=== PATIENT | male | born 1955 | race Caucasian/White ===

== ENCOUNTER 2016-08-26 23:26 | Emergency (ER) | payer OTHER ==
[~2016-08-26] VITALS: Ht 177.8 cm; Wt 122.5 kg
[~2016-08-26 23:26] MED LIST: AMITRIPTYLINE100 M2 PO; ATORVASTATIN CA40 M1 PO; CLOPIDOGREL75 M1 PO; GLIPIZIDE10 M2 PO; HYDROCHLOROTHIA25 M1 PO; JANUMET 50-1,01 EACH PO; KEFLEX500 M1 PO; LANTUS SOL100 UNIT/1 SC; LEVOTHYROXINE25 MCG PO; LISINOPRIL40 M1 PO; OMEPRAZOLE40 M1 PO; OXYCODONE HCL30 M1 PO; OXYCONTIN40 M1 PO
--- NOTE | 2016-08-27 01:00 | ED GENERAL ADULT ---
History of Present Illness General Chief Complaint: General Adult Stated Complaint: "HIGH BP" PER PT Source: patient, family, old records Exam Limitations: no limitations Vital Signs & Intake/Output Vital Signs & Intake/Output Vital Signs Date Time Temp Pulse Resp B/P Pulse O2 O2 Flow FiO2 Ox Delivery Rate 08/27 0115 98 Room Air 08/27 0104 153/89 03/ 2333 95.9 76 20 197/70 96 Room Air ED Intake and Output 08/27 0000 08/26 1200 Intake Total Output Total Balance Patient 270 lb Weight Allergies Coded Allergies: NO KNOWN ALLERGIES (07/06/15) Reconcile Medications Amitriptyline HCl 100 MG TABLET 1 TAB PO QPM UNKNOWN (Reported) Atorvastatin Calcium 40 MG TABLET 1 TAB PO DAILY CHOLESTEROL (Reported) Cephalexin (Keflex) 500 MG CAPSULE 1 CAP PO TID PPX Clopidogrel Bisulfate (Clopidogrel) 75 MG TABLET 1 TAB PO DAILY BLOOD THINNER (Reported) Glipizide 10 MG TABLET 1 TAB PO DAILY DIABETES (Reported) Hydrochlorothiazide 25 MG TABLET 1 TAB PO DAILY WATER PILL (Reported) Insulin Glargine,Hum.rec.anlog (Lantus Solostar) 100 UNIT/1 ML INSULN.PEN 7 UNIT SC BID DIABETES (Reported) Levothyroxine Sodium 25 MCG TABLET 1 TAB PO DAILY AC THYROID (Reported) Lisinopril 40 MG TABLET 1 TAB PO DAILY HEART (Reported) Omeprazole 40 MG CAPSULE.DR 1 CAP PO DAILY PRN GI (Reported) Oxycodone HCl 30 MG TABLET 1 TAB PO PAIN (Reported) Oxycodone HCl (Oxycontin) 40 MG TAB.ER.12H 1 TAB PO TID PAIN (Reported) Sitagliptin Phos/Metformin HCl (Janumet 50-1,000 MG Tablet) 1 EACH TABLET 1 TAB PO BID DIABETES (Reported) Triage Note: PT TO ED C/O HIGH BP AT HOME. TOOK 40 MG LISINOPRIL AT 2100 "I WANTED TO SEE HOW LONG IT TAKES TO WORK" TOOK BP AT 2230 WAS 162/97. TOOK AGAIN 30 MINS LATER AND IT WAS 191/106. DENIES HEADACHE. BP IN TRIAGE 197/70. PT TAKING HIS BP WITH HIS MACHINE AGAIN IN TRIAGE. FINGERSTICK AT HOME 185 Triage Nurses Notes Reviewed? yes HPI: Patient states that for the past few weeks he's been getting sweaty intermittently. Patient was concerned that it was his blood pressures so he took his Blood pressure this evening and it was elevated. Patient took his blood pressure medication however his pressure continued to go up. Patient denies any headache or blurry vision. Patient came in to get evaluated. Patient states that intermittently for the past few weeks when he has been sleeping usual quinapril for blood but then is relieved when he gets up and watch TV. Patient states that it does not happen every night. Patient denies any chest pain or palpitations. Patient denies any dyspnea on exertion. Patient states that he chronically sleeps on 2 pillows and that has not changed. Patient states that also over the past 2 weeks. Getting intermittent sharp stabbing pain in his shoulder while he was sleeping. The pain is either in the right shoulder or the left shoulder but never both at the same time. The pain is relieved when he takes oxycodone. Patient also states that occasionally he gets cramping in both calves. The pain is independent with walking. The pain lasts a few hours when he gets up and then it goes away. There is no radiation of the pain. There are no aggravating or mitigating factors. When he has the pain he rates it as a 4 out of 10. Past History Travel History Traveled to [place] past 21 day No Medical History Any Pertinent Medical History? see below for history Cardiovascular: hypertension, hyperlipidemia Musculoskeletal: chronic back pain Endocrine: diabetes Surgical History Surgical History: laminectomy Psychosocial History What is your primary language Bulgarian Tobacco Use: Never used ETOH Use: occasional use Illicit Drug Use: denies illicit drug use Family History Hx Contributory? No Review of Systems Review of Systems Constitutional: Reports: see HPI. EENTM: Reports: no symptoms. Respiratory: Reports: see HPI, orthopnea (INTERMITTENT). Cardiovascular: Reports: no symptoms. GI: Reports: no symptoms. Genitourinary: Reports: no symptoms. Musculoskeletal: Reports: see HPI, joint pain, muscle pain. Skin: Reports: no symptoms. Neurological/Psychological: Reports: no symptoms. Hematologic/Endocrine: Reports: no symptoms. Immunologic/Allergic: Reports: no symptoms. All Other Systems: Reviewed and Negative Physical Exam Physical Exam General Appearance: well developed/nourished, alert, awake Head: atraumatic, normal appearance Eyes: Bilateral: PERRL, EOMI. Ears, Nose, Throat: normal pharynx, normal ENT inspection, hearing grossly normal Neck: normal inspection, supple, full range of motion Respiratory: normal breath sounds, chest non-tender, no respiratory distress, lungs clear Cardiovascular: regular rate/rhythm, normal peripheral pulses Gastrointestinal: normal bowel sounds, soft, non-tender, no organomegaly Back: normal inspection, normal range of motion Extremities: pedal edema Neurologic/Psych: no motor/sensory deficits, awake, alert, oriented x 3, normal gait, normal mood/affect Skin: intact, normal color, warm/dry Lymphatic: no anterior cervical luba Core Measures ACS in differential dx? Yes CVA/TIA Diagnosis: No Severe Sepsis Present: No Septic Shock Present: No Progress Differential Diagnoses I considered the following diagnoses in my evaluation of the patient: [ Hypertension: Excellent abnormality, CHF] Plan of Care: Patient states that his blood pressure is better and he wants to go home. Patient promises to return for workup patient is to continue the symptoms. Patient verbally understands the risks of leaving prior to workup being initiated. Patient is alert and oriented 3 and is competent to make decisions. Initial ED EKG: none Departure Departure Disposition: HOME OR SELF CARE Condition: Stable Clinical Impression Primary Impression: Hypertension Referrals: SHADIA LUNA (PCP/Family) Additional Instructions: RETURN FOR FURTHER WORKUP OR FOR ANY CONCERNS Departure Forms: Customer Survey General Discharge Information Critical Care Note Critical Care Note Critical Care Time: non-applicable
[2016-08-27 01:04] VITALS: BP 153/89
== END 2016-08-27 01:15 ==
LOC: ERH 23:26
DX: I10 Essential (primary) hypertension (principal)
CPT/HCPCS: 99282

== ENCOUNTER 2016-09-07 21:27 | Emergency (ER) | payer OTHER ==
[2016-09-07 21:38] VITALS: BP 161/71
[2016-09-07] MEDS ORDERED: NAPROSYN500 M1 PO (22:23)
[2016-09-07] MEDS ORDERED: AZITHROMYCIN250 M1 PO (22:23)
--- NOTE | 2016-09-07 22:24 | ED THROAT/DENTAL COMPLAINT ---
History of Present Illness General Chief Complaint: Sore Throat, Dental Pain Stated Complaint: TOOTH PAIN Source: patient Exam Limitations: no limitations Vital Signs & Intake/Output Vital Signs & Intake/Output Vital Signs Date Time Temp Pulse Resp B/P Pulse O2 O2 Flow FiO2 Ox Delivery Rate 09/078 98.5 80 20 161/71 99 Allergies Coded Allergies: NO KNOWN ALLERGIES (07/06/15) Triage Note: PER PT I HAVE NO MONEY MY TOOTH IS KILLING ME SO I'M HERE Triage Nurses Notes Reviewed? yes HPI: This patient is a 61-year-old male who presented to the emergency department today for evaluation of lower dental pain. The patient reported that the pain started today feels like his gums are getting infected. The pain except a 9 out of 10, is throbbing, and nonradiating. No palliative factors. 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 He reported that he is currently getting set up with a dentist in [place] who does pro nancy dental work. The patient denied any ear pain or headaches. No visual changes, chest pain, or difficulty breathing. (LESIA WADE,SHARIF) Reconcile Medications Amitriptyline HCl 100 MG TABLET 1 TAB PO QPM UNKNOWN (Reported) Atorvastatin Calcium 40 MG TABLET 1 TAB PO DAILY CHOLESTEROL (Reported) Azithromycin 250 MG TABLET 1 DP PO AD TOOTH INFECTION 2 the first day followed by 1 for days 2-5 Cephalexin (Keflex) 500 MG CAPSULE 1 CAP PO TID PPX Clopidogrel Bisulfate (Clopidogrel) 75 MG TABLET 1 TAB PO DAILY BLOOD THINNER (Reported) Glipizide 10 MG TABLET 1 TAB PO DAILY DIABETES (Reported) Hydrochlorothiazide 25 MG TABLET 1 TAB PO DAILY WATER PILL (Reported) Insulin Glargine,Hum.rec.anlog (Lantus Solostar) 100 UNIT/1 ML INSULN.PEN 7 UNIT SC BID DIABETES (Reported) Levothyroxine Sodium 25 MCG TABLET 1 TAB PO DAILY AC THYROID (Reported) Lisinopril 40 MG TABLET 1 TAB PO DAILY HEART (Reported) Naproxen (Naprosyn) 500 MG TABLET 1 TAB PO BID PRN PAIN Omeprazole 40 MG CAPSULE.DR 1 CAP PO DAILY PRN GI (Reported) Oxycodone HCl 30 MG TABLET 1 TAB PO PAIN (Reported) Oxycodone HCl (Oxycontin) 40 MG TAB.ER.12H 1 TAB PO TID PAIN (Reported) Sitagliptin Phos/Metformin HCl (Janumet 50-1,000 MG Tablet) 1 EACH TABLET 1 TAB PO BID DIABETES (Reported) (ECTOR LAWSON,SHERLEY) Past History Travel History Traveled to [place] past 21 day No Medical History Any Pertinent Medical History? see below for history Neurological: NONE EENT: NONE Cardiovascular: hypertension, hyperlipidemia Respiratory: NONE Gastrointestinal: NONE Hepatic: NONE Renal: NONE Musculoskeletal: chronic back pain Psychiatric: NONE Endocrine: diabetes Surgical History Surgical History: laminectomy Psychosocial History What is your primary language Malawian Tobacco Use: Never used Family History Hx Contributory? No (SHARIF GRAF PA-C) Review of Systems Review of Systems Constitutional: Reports: no symptoms. EENTM: Reports: see HPI. Respiratory: Reports: no symptoms. Cardiovascular: Reports: no symptoms. GI: Reports: no symptoms. Genitourinary: Reports: no symptoms. Musculoskeletal: Reports: no symptoms. Skin: Reports: no symptoms. Neurological/Psychological: Reports: no symptoms. All Other Systems: Reviewed and Negative (SHARIF GRAF PA-C) Physical Exam Physical Exam Mouth/Throat: pharynx normal, TENDERNESS TO PALPATION OVER THE LOWER DENTITION. pOOR DENTITION. cARIOUS. mANY MISSING TEETH. nO OROPHARYNGEAL LESIONS. nO ABSCESS FORMATION. mILD AMOUNT OF GINGIVAL ERYTHEMA AROUND THE LOWER DENTITION Comments: Well-developed well-nourished person in no acute distress HEENT: Head normocephalic, moist mucous membranes Pupils equally round and reactive to light. Nose is atraumatic. Neck: Supple, no lymphadenopathy Back: Normal gait Respiratory: No respiratory distress. Speaking in full sentences Extremity: Normal equal pulses Neuro: Alert oriented x3, cranial nerves II through XII grossly intact. Skin: No appreciable rash on exposed skin, skin is warm and dry. Psych: Mood and affect is normal Core Measures ACS in differential dx? No Severe Sepsis Present: No Septic Shock Present: No (SHARIF GRAF PA-C) Progress Differential Diagnosis: aspirated tooth, carious tooth, epiglottitis, Ludwigs angina, meningitis, odontogenic abscess, graham-tonsillar abscess, pharyngeal for. body, stomatitis/gingivitis, strep pharyngitis, tooth fracture Plan of Care: This patient is a 61-year-old male who presented to the emergency department today for evaluation of dental pain. Possible developing dental infection given carious teeth and tooth fracture at the site of pain. This patient will be given outpatient symptomatic management and he will be following up with his dentist as discussed. (SHARIF GRAF PA-C) Departure Departure Disposition: HOME OR SELF CARE Condition: Stable Clinical Impression Primary Impression: Tooth fracture Qualifiers: Encounter type: initial encounter Fracture type: closed Qualified Code: S02.5XXA - Fracture of tooth (traumatic), initial encounter for closed fracture Referrals: SHADIA LUNA (PCP/Family) Additional Instructions: Take medication for pain as prescribed. Take antibiotic as prescribed. Follow- up with your dentist. Departure Forms: Customer Survey General Discharge Information Prescriptions: Current Visit Scripts Naproxen (Naprosyn) 1 TAB PO BID PRN PAIN #15 TAB Azithromycin 1 DP PO AD #6 TAB 2 the first day followed by 1 for days 2-5 (SHARIF GRAF PA-C) PA/MC KAY STITCHER Co-Sign Statement Statement: ED Attending supervision documentation- x I saw and evaluated the patient. I have also reviewed all the pertinent lab results and diagnostic results. I agree with the findings and the plan of care as documented in the PA's/MC KAY STITCHER's documentation. [] I have reviewed the ED Record and agree with the PA's/MC KAY STITCHER's documentation. [] Additions or exceptions (if any) to the PAs/MC KAY STITCHER's note and plan are summarized below: [] (ECTOR LAWSON,SHERLEY)
== END 2016-09-07 22:31 ==
LOC: ERH 21:27
DX: S02.5XXA Fracture of tooth (traumatic), initial encounter for closed fracture (principal); X58.XXXA Exposure to other specified factors, initial encounter; Y93.9 Activity, unspecified; Y92.9 Unspecified place or not applicable

== ENCOUNTER 2016-10-01 23:29 | Emergency (ER) | payer OTHER ==
[~2016-10-01] VITALS: Ht 177.8 cm; Wt 118.8 kg
[~2016-10-01 23:29] MED LIST changes: +AZITHROMYCIN250 M1 PO; +NAPROSYN500 M1 PO
--- NOTE | 2016-10-02 00:09 | ED GENERAL ADULT ---
History of Present Illness General Chief Complaint: General Adult Stated Complaint: " BP 175/87 HX OF HIGH BP, SWEATING" Source: patient Exam Limitations: no limitations Vital Signs & Intake/Output Vital Signs & Intake/Output Vital Signs Date Time Temp Pulse Resp B/P Pulse O2 O2 Flow FiO2 Ox Delivery Rate 10/02 0156 98.3 62 18 132/61 98 10/02 0002 97.1 70 18 156/79 98 Allergies Coded Allergies: NO KNOWN ALLERGIES (07/06/15) Reconcile Medications Amitriptyline HCl 100 MG TABLET 1 TAB PO QPM UNKNOWN (Reported) Atorvastatin Calcium 40 MG TABLET 1 TAB PO DAILY CHOLESTEROL (Reported) Azithromycin 250 MG TABLET 1 DP PO AD TOOTH INFECTION 2 the first day followed by 1 for days 2-5 Cephalexin (Keflex) 500 MG CAPSULE 1 CAP PO TID PPX Clopidogrel Bisulfate (Clopidogrel) 75 MG TABLET 1 TAB PO DAILY BLOOD THINNER (Reported) Glipizide 10 MG TABLET 1 TAB PO DAILY DIABETES (Reported) Hydrochlorothiazide 25 MG TABLET 1 TAB PO DAILY WATER PILL (Reported) Insulin Glargine,Hum.rec.anlog (Lantus Solostar) 100 UNIT/1 ML INSULN.PEN 7 UNIT SC BID DIABETES (Reported) Levothyroxine Sodium 25 MCG TABLET 1 TAB PO DAILY AC THYROID (Reported) Lisinopril 40 MG TABLET 1 TAB PO DAILY HEART (Reported) Naproxen (Naprosyn) 500 MG TABLET 1 TAB PO BID PRN PAIN Omeprazole 40 MG CAPSULE.DR 1 CAP PO DAILY PRN GI (Reported) Oxycodone HCl 30 MG TABLET 1 TAB PO PAIN (Reported) Oxycodone HCl (Oxycontin) 40 MG TAB.ER.12H 1 TAB PO TID PAIN (Reported) Sitagliptin Phos/Metformin HCl (Janumet 50-1,000 MG Tablet) 1 EACH TABLET 1 TAB PO BID DIABETES (Reported) Triage Note: TRIAGE: PATIENT TO ER FROM HOME REPORTS SWEATING INTERMITTENTLY X "FEW MONTHS", INCREASING. PATIENT ALSO REPORTING EXHESTION EXHAUSTION, DENIES SOB/ CP. PATIENT ALSO REPORTS STOPPED PLAVIX 1 WEK AGO PER MD DIRECTION D/T CARDIAC STENTS PLACED. PATIENT DENIE ANY OTHER COMPLAINTS OTHER THAN INTERMITTENT SWEATING. SEEN BY MD TYSON IN [place] DURING EKG. Triage Nurses Notes Reviewed? yes Onset: Gradual Duration: day(s): Timing: recent history Injury Environment: home Severity: mild Modifying Factors: Improves With: rest. Associated Symptoms: diaphoresis HPI: 61 yo gentleman Presents with elevated blood pressure. He states that his blood pressure at home has a systolic in the 180s. He notes no dietary indiscretion. He's been taking his medications as prescribed. He states that he took his blood pressure upon arrival the systolic blood pressure was 154. He notes no chest pain shortness of breath or syncopal symptoms but he did note mild diaphoresis. He has no orthopnea no swelling in his lower extremities no chest pain. He is otherwise well. Past History Travel History Traveled to [place] past 21 day No Medical History Any Pertinent Medical History? 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 No Review of Systems Review of Systems Constitutional: Reports: no symptoms. EENTM: Reports: no symptoms. Respiratory: Reports: no symptoms. Cardiovascular: Reports: no symptoms. GI: Reports: no symptoms. Genitourinary: Reports: no symptoms. Musculoskeletal: Reports: no symptoms. Skin: Reports: no symptoms. Neurological/Psychological: Reports: no symptoms. Hematologic/Endocrine: Reports: no symptoms. Immunologic/Allergic: Reports: no symptoms. All Other Systems: Reviewed and Negative Physical Exam Physical Exam General Appearance: well developed/nourished, anxious - mild Head: atraumatic, normal appearance Eyes: Bilateral: normal appearance. Ears, Nose, Throat: normal pharynx, normal ENT inspection Neck: normal inspection, supple, full range of motion Respiratory: normal breath sounds, chest non-tender, no respiratory distress, quiet respiration, lungs clear Cardiovascular: regular rate/rhythm Gastrointestinal: normal bowel sounds, soft, non-tender, no organomegaly Back: normal inspection, normal range of motion Extremities: normal inspection, normal capillary refill, normal range of motion, no edema Neurologic/Psych: no motor/sensory deficits, awake, alert, oriented x 3 Skin: intact, normal color, warm/dry Core Measures ACS in differential dx? No CVA/TIA Diagnosis: No Severe Sepsis Present: No Septic Shock Present: No Progress Differential Diagnoses I considered the following diagnoses in my evaluation of the patient: elevated bp, mi acs vs other. Plan of Care: Orders Procedure Date/time Status TROPONIN LEVEL 10/02 218 Complete EKG 10/02 218 Active TROPONIN LEVEL 10/01 2334 Complete PARTIAL THROMBOPLASTIN TIME 10/01 2334 Complete PROTHROMBIN TIME 10/01 2334 Complete COMPREHENSIVE METABOLIC PANEL 10/01 2334 Complete CBC WITHOUT DIFFERENTIAL 10/01 2334 Complete B-TYPE NATRIURETIC PEP (BNP) 10/01 2334 Complete EKG 10/01 2334 Active Laboratory Tests 10/02/16 0239: Troponin I < 0.01 10/01/16 2252: Anion Gap 11, Estimated GFR > 60, BUN/Creatinine Ratio 22.5, Glucose 160 H, Calcium 10.3 H, Total Bilirubin 0.7, AST 33, ALT 46, Alkaline Phosphatase 78, Troponin I < 0.01, Rah-K-Dzimfhviukz Pept 36.5, Total Protein 7.2, Albumin 4.4, Globulin 2.8, Albumin/Globulin Ratio 1.6, PT 10.7, INR 1.02, APTT 27, CBC w Diff NO MAN DIFF REQ, RBC 4.72, MCV 85.5, MCH 29.5, RDW 13.4, MPV 7.4, Gran % 85.9 H , Lymphocytes % 7.2 L, Monocytes % 5.6, Eosinophils % 1.3, Basophils % 0 L, Absolute Granulocytes 7.3 H, Absolute Lymphocytes 0.6 L, Absolute Monocytes 0.5, Absolute Eosinophils 0.1, Absolute Basophils 0, PUBS MCHC 34.5 Initial ED EKG: normal axis, normal intervals, normal p-waves, normal QRS complex, normal sinus rhythm Repeat EKG: unchanged Departure Departure Disposition: HOME OR SELF CARE Condition: Stable Clinical Impression Primary Impression: Elevated blood pressure reading Referrals: SHADIA LUNA (PCP/Family) Departure Forms: Customer Survey General Discharge Information Comments 10/02/16, 3:57am... pt resting comfortably, labs benign, trop neg x 2, ekg benign x 2.... pt never had chest pain... he will follow up with dr. burnham. encouraged close follow up. Critical Care Note Critical Care Note Critical Care Time: non-applicable
[2016-10-02 00:10] LABS: PT 10.7 SEC (9.4-12.5); PTT 27 SEC (25-37)
[2016-10-02 00:15] LABS: ABSOLUTE BASOPHIL COUNT 0 /CUMM (0.0-0.2); ABSOLUTE EOSINOPHIL COUNT 0.1 /CUMM (0.0-0.7); ABSOLUTE GRANULOCYTE CT 7.3 /CUMM (1.4-6.5); ABSOLUTE LYMPH COUNT 0.6 /CUMM (1.2-3.4); ABSOLUTE MONOCYTE COUNT 0.5 /CUMM (0.10-0.60); BASOPHIL % 0 % (0.0-2.0); EOSINOPHIL % 1.3 % (0-5); GRANULOCYTE % 85.9 % (42.2-75.2); HEMATOCRIT 40.4 % (42-52); MEAN CORPUSCULAR HGB 29.5 PG (27.0-31.0); MEAN CORPUSCULAR HGB CONC 34.5 G/DL (33.0-37.0); MEAN CORPUSCULAR VOLUME 85.5 FL (80.0-94.0); MEAN PLATELET VOLUME 7.4 FL (7.4-10.4); PLATELET COUNT 198 /CUMM (130-400); RBC DISTRIBUTION WIDTH 13.4 % (11.5-14.5); RED BLOOD CELL CT 4.72 /CUMM (4.70-6.10); WHITE BLOOD CELL COUNT 8.5 /CUMM (4.8-10.8)
--- NOTE | 2016-10-02 00:53 | RADIOLOGY REPORT ---
EXAMINATION: CHEST 1 VIEW CLINICAL INFORMATION: Chest pain. COMPARISON: None. TECHNIQUE: An AP view of the chest is provided. FINDINGS: The cardiac silhouette is not enlarged. The mediastinal and hilar contours are unremarkable. There are neither pleural effusions nor pneumothoraces. There are no consolidations. Cervical spine fusion hardware is identified in place. The osseous structures are otherwise unremarkable. IMPRESSION: No evidence for acute disease.
[2016-10-02 04:15] VITALS: BP 128/69
== END 2016-10-02 04:47 ==
LOC: ERH 23:29
PROVIDERS: Pediatrics
DX: I10 Essential (primary) hypertension (principal)
CPT/HCPCS: 93005; 93010

== ENCOUNTER 2016-10-10 21:11 | Emergency (ER) | payer OTHER ==
[~2016-10-10] VITALS: Ht 177.8 cm; Wt 118.8 kg
[2016-10-10 22:35] LABS: ABSOLUTE BASOPHIL COUNT 0 /CUMM (0.0-0.2); ABSOLUTE EOSINOPHIL COUNT 0.2 /CUMM (0.0-0.7); ABSOLUTE GRANULOCYTE CT 5.4 /CUMM (1.4-6.5); ABSOLUTE LYMPH COUNT 0.9 /CUMM (1.2-3.4); ABSOLUTE MONOCYTE COUNT 0.5 /CUMM (0.10-0.60); BASOPHIL % 0.2 % (0.0-2.0); EOSINOPHIL % 2.4 % (0-5); GRANULOCYTE % 78.1 % (42.2-75.2); HEMATOCRIT 41.5 % (42-52); MEAN CORPUSCULAR HGB 29.3 PG (27.0-31.0); MEAN CORPUSCULAR HGB CONC 33.6 G/DL (33.0-37.0); MEAN CORPUSCULAR VOLUME 87.4 FL (80.0-94.0); MEAN PLATELET VOLUME 7.4 FL (7.4-10.4); PLATELET COUNT 183 /CUMM (130-400); RBC DISTRIBUTION WIDTH 13.1 % (11.5-14.5); RED BLOOD CELL CT 4.74 /CUMM (4.70-6.10); WHITE BLOOD CELL COUNT 6.9 /CUMM (4.8-10.8)
[2016-10-11 00:19] VITALS: BP 135/89
--- NOTE | 2016-10-11 00:42 | ED SKIN/ALLERGY COMPLAINT ---
History of Present Illness General Chief Complaint: General Adult Stated Complaint: HERE LAST WEEK FOR SAME, "SWEATING SPELLS" Source: patient, old records Exam Limitations: no limitations Vital Signs & Intake/Output Vital Signs & Intake/Output Vital Signs Date Time Temp Pulse Resp B/P Pulse O2 O2 Flow FiO2 Ox Delivery Rate 10/11 0019 97.7 76 18 135/89 96 Room Air 10/10 2129 160/90 10/10 2125 76 174/86 10/10 2125 97.3 76 18 161/91 98 Room Air ED Intake and Output 10/11 0000 10/10 1200 Intake Total 0 Output Total Balance 0 Intake, Oral 0 Patient 262 lb Weight Allergies Coded Allergies: NO KNOWN ALLERGIES (07/06/15) Reconcile Medications Alprazolam 0.25 MG TABLET 1 TAB PO DAILY NEEDED ?ANXIETY (Reported) Amitriptyline HCl 100 MG TABLET 1 TAB PO QPM UNKNOWN (Reported) Atorvastatin Calcium 40 MG TABLET 1 TAB PO DAILY CHOLESTEROL (Reported) Azithromycin 250 MG TABLET 1 DP PO AD TOOTH INFECTION 2 the first day followed by 1 for days 2-5 Clopidogrel Bisulfate (Clopidogrel) 75 MG TABLET 1 TAB PO DAILY BLOOD THINNER (Reported) Glipizide 10 MG TABLET 1 TAB PO DAILY DIABETES (Reported) Hydrochlorothiazide 25 MG TABLET 1 TAB PO DAILY WATER PILL (Reported) Insulin Glargine,Hum.rec.anlog (Lantus Solostar) 100 UNIT/1 ML INSULN.PEN 7 UNIT SC BID DIABETES (Reported) Levothyroxine Sodium 25 MCG TABLET 1 TAB PO DAILY AC THYROID (Reported) Lisinopril 40 MG TABLET 1 TAB PO DAILY HEART (Reported) Naproxen (Naprosyn) 500 MG TABLET 1 TAB PO BID PRN PAIN Omeprazole 40 MG CAPSULE.DR 1 CAP PO DAILY PRN GI (Reported) Oxycodone HCl 30 MG TABLET 1 TAB PO PAIN (Reported) Oxycodone HCl (Oxycontin) 40 MG TAB.ER.12H 1 TAB PO TID PAIN (Reported) Rosuvastatin Calcium (Crestor) 10 MG TABLET 1 TAB PO DAILY HIGH CHOLESTEROL ( Reported) Sitagliptin Phos/Metformin HCl (Janumet 50-1,000 MG Tablet) 1 EACH TABLET 1 TAB PO BID DIABETES (Reported) Zolpidem Tartrate 5 MG TABLET 1 TAB PO QPMP (Reported) Triage Note: RECEIVED 61 YO MALE C/O INTERMITTENT EPISODES OF FACIAL AND NECK REDNESS WITH PROFUSE SWEATING, OCCURED 3X TODAY. PT WAS HERE FOR SAME OVER A WEEKS AGO AND D/C'D. PT ALSO REPORTS B/P DIFFERENT IN BOTH ARMS WELL BLOOD SUGAR. Triage Nurses Notes Reviewed? yes HPI: Patient presents for evaluation of "sweating spells" that began last week. Patient states he was evaluated in the emergency department at [facility] and no cause was determined. He states he had 3 episodes today that were abrupt in onset and lasted about 15-45 minutes. They have been intermittent and nothing seems to broke them there seems to be no associated symptoms aside from almost constant cold hands. Patient states he feels flushed in his head ears and neck along with diaphoresis. He states when he lies down to go to sleep he gets shoulder pain affecting the shoulder but he is lying upon. In addition he gets cramping of the calf muscles that are unrelated to ambulation or exertion. Past History Travel History Traveled to [facility] past 21 day No Medical History Any Pertinent Medical History? 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 No Review of Systems Review of Systems Constitutional: Reports: no symptoms. EENTM: Reports: no symptoms. Respiratory: Reports: no symptoms. Cardiovascular: Reports: no symptoms. GI: Reports: no symptoms. Genitourinary: Reports: no symptoms. Musculoskeletal: Reports: no symptoms. Skin: Reports: no symptoms. Neurological/Psychological: Reports: no symptoms. Hematologic/Endocrine: Reports: no symptoms. Immunologic/Allergic: Reports: no symptoms. All Other Systems: Reviewed and Negative Physical Exam Physical Exam General Appearance: SEE BELOW Comments: Gen.: Well-nourished, well-developed, no acute respiratory distress. Head: Normocephalic, atraumatic. Eyes: Normal inspection bilaterally Ears: Normal inspection bilaterally Nose: Normal inspection Throat/mouth : Moist mucosa Neck: Supple, full range of motion, no goiter Heart: Regular rate and rhythm, no murmurs rubs or gallops Lungs: Clear to auscultation bilaterally with normal air entry Chest: Nontender Back: Normal range of motion Abdomen: Soft, nontender, nondistended, normal bowel sounds Extremities: Normal range of motion grossly, equal radial pulses, no cyanosis clubbing or edema Neurologic: Cranial nerves grossly intact, speech is clear Skin: warm and dry, no flushing or diaphoresis noted Psychiatric: Calm, cooperative, no apparent delusions or hallucinations Progress Differential Diagnosis: allergic reaction, anaphylaxis, drug reaction, occult infection Plan of Care: Orders Procedure Date/time Status Add-on Test (ER Only) 10/10 2305 Active TROPONIN LEVEL 10/10 2221 Complete THYROID STIMULATING HORMONE 10/10 2209 Complete COMPREHENSIVE METABOLIC PANEL 10/10 2209 Complete CBC WITHOUT DIFFERENTIAL 10/10 2209 Complete EKG 10/10 2116 Active Laboratory Tests 10/10/162221: Anion Gap 12, Estimated GFR > 60, BUN/Creatinine Ratio 21.0, Glucose 126 H, Calcium 9.9, Total Bilirubin 0.4, AST 36, ALT 43, Alkaline Phosphatase 70, Troponin I < 0.01, Total Protein 7.3, Albumin 4.5, Globulin 2.8, Albumin/ Globulin Ratio 1.6, TSH 1.270, CBC w Diff NO MAN DIFF REQ, RBC 4.74, MCV 87.4, MCH 29.3, RDW 13.1, MPV 7.4, Gran % 78.1 H, Lymphocytes % 12.6 L, Monocytes % 6.7, Eosinophils % 2.4, Basophils % 0.2, Absolute Granulocytes 5.4, Absolute Lymphocytes 0.9 L, Absolute Monocytes 0.5, Absolute Eosinophils 0.2, Absolute Basophils 0, PUBS MCHC 33.6 Comments: I have updated daija on his test results and of the continuing unclear nature of his symptom complex. He will follow up with his primary care physician to continue the evaluation beyond the emergency department. Departure Departure Disposition: HOME OR SELF CARE Condition: Stable Clinical Impression Primary Impression: Skin blushing/flushing Referrals: SHADIA LUNA (PCP/Family) Additional Instructions: Please follow up with your primary care doctor for further testing. Since the cause of your symptoms is unclear at this point return if any sudden worsening. Departure Forms: Customer Survey General Discharge Information
[2016-10-11] MEDS ORDERED: CRESTOR10 M1 PO (00:54)
[2016-10-11] MEDS ORDERED: ZOLPIDEM TARTRAT5 M1 PO (00:54)
[2016-10-11] MEDS ORDERED: ALPRAZOLAM0.25 M1 PO (00:54)
== END 2016-10-11 00:55 ==
LOC: ERH 21:11
PROVIDERS: Emergency Medicine
DX: R23.2 Flushing (principal); I10 Essential (primary) hypertension
CPT/HCPCS: 93005; 93010

== ENCOUNTER 2016-12-02 02:32 | Emergency (ER) | payer OTHER ==
[~2016-12-02] VITALS: Ht 177.8 cm; Wt 118.8 kg
[~2016-12-02 02:32] MED LIST changes: +ALPRAZOLAM0.25 M1 PO; +CRESTOR10 M1 PO; +ZOLPIDEM TARTRAT5 M1 PO
[2016-12-02 02:46] VITALS: BP 172/79
--- NOTE | 2016-12-02 02:56 | ED EYE COMPLAINT ---
History of Present Illness General Chief Complaint: Eye Problems Stated Complaint: ? FB RT EYE Source: patient Exam Limitations: no limitations Vital Signs & Intake/Output Vital Signs & Intake/Output Vital Signs Date Time Temp Pulse Resp B/P B/P Pulse O2 O2 Flow FiO2 Mean Ox Delivery Rate 12/02 0246 98.3 89 18 172/79 96 Room Air Allergies Coded Allergies: NO KNOWN ALLERGIES (07/06/15) Reconcile Medications Alprazolam 0.25 MG TABLET 1 TAB PO DAILY NEEDED ?ANXIETY (Reported) Amitriptyline HCl 100 MG TABLET 1 TAB PO QPM UNKNOWN (Reported) Atorvastatin Calcium 40 MG TABLET 1 TAB PO DAILY CHOLESTEROL (Reported) Azithromycin 250 MG TABLET 1 DP PO AD TOOTH INFECTION 2 the first day followed by 1 for days 2-5 Clopidogrel Bisulfate (Clopidogrel) 75 MG TABLET 1 TAB PO DAILY BLOOD THINNER (Reported) Glipizide 10 MG TABLET 1 TAB PO DAILY DIABETES (Reported) Hydrochlorothiazide 25 MG TABLET 1 TAB PO DAILY WATER PILL (Reported) Insulin Glargine,Hum.rec.anlog (Lantus Solostar) 100 UNIT/1 ML INSULN.PEN 7 UNIT SC BID DIABETES (Reported) Levothyroxine Sodium 25 MCG TABLET 1 TAB PO DAILY AC THYROID (Reported) Lisinopril 40 MG TABLET 1 TAB PO DAILY HEART (Reported) Naproxen (Naprosyn) 500 MG TABLET 1 TAB PO BID PRN PAIN Omeprazole 40 MG CAPSULE.DR 1 CAP PO DAILY PRN GI (Reported) Oxycodone HCl 30 MG TABLET 1 TAB PO PAIN (Reported) Oxycodone HCl (Oxycontin) 40 MG TAB.ER.12H 1 TAB PO TID PAIN (Reported) Polytrim (Polytrim Eye Drops) 10,000 UNIT-1 MG/ML DROPS 2 GTT OPH Q6 EYEINFECTION Rosuvastatin Calcium (Crestor) 10 MG TABLET 1 TAB PO DAILY HIGH CHOLESTEROL ( Reported) Sitagliptin Phos/Metformin HCl (Janumet 50-1,000 MG Tablet) 1 EACH TABLET 1 TAB PO BID DIABETES (Reported) Zolpidem Tartrate 5 MG TABLET 1 TAB PO QPMP (Reported) Triage Note: PT TO ED C/O ?FB TO RT EYE. STATES WEED WACKED YESTERDAY AND "I THINK I GOT SOMETHING IN THERE" TRIED FLUSHING EYE. STATES ALSO THINKS HE GOT BIT BY A TICK5-7 DAYS AGO. "I THOUGHT I HAD IT ALL OUT BUT I'M NOT SURE I DID. I TRIED PULLING THE SCAB OFF TO SEE IF I COULD GETR THE REST OF IT, BUT I DON'T THINK I GOT IT" SCABBED AREA NOTED TO RT BREAST, LATERAL SIDE Triage Nurses Notes Reviewed? yes Onset: Gradual Duration: right thigh discomfort Timing: recent history Injury Environment: home Severity: moderate Modifying Factors: Improves With: rest. Left Eye Associated Symptoms: left eye is normal Right Eye Associated Symptoms: itching, increased tearing HPI: 61-year-old gentleman prior good health presents with right eye irritation. He states that he was using the "weed whacker "yesterday evening. "At the time, and it did not hurt me.... But then during the night my right eye started burning. " He notes no change in vision. He notes increased tearing. He states, "it feels like there something on my eye." He is otherwise well Past History Travel History Traveled to [place] past 21 day No Medical History Any Pertinent Medical History? 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 No Review of Systems Review of Systems Constitutional: Reports: no symptoms. Eyes: Reports: no symptoms. Ear: Reports: no symptoms. Nose: Reports: no symptoms. Mouth: Reports: no symptoms. Throat: Reports: no symptoms. Respiratory: Reports: no symptoms. Cardiovascular: Reports: no symptoms. GI: Reports: no symptoms. Genitourinary: Reports: no symptoms. Musculoskeletal: Reports: no symptoms. Skin: Reports: no symptoms. Neurological/Psychological: Reports: no symptoms. Hematologic/Endocrine: Reports: no symptoms. Immunologic/Allergic: Reports: no symptoms. All Other Systems: Reviewed and Negative Physical Exam General Appearance: well developed/nourished, mild distress General Inspection: normal inspection Eyelid: normal inspection Conjunctiva/Sclera: normal inspection, see diagram Cornea: normal inspection EOM: intact Pupil: normal accommodation, normal pupil, PERRL General Inspection: normal inspection Eyelid: normal inspection Conjunctiva/Sclera: injected, no foreign body visualized. Cornea: normal inspection EOM: intact Pupil: normal accommodation, normal pupil, PERRL Physical Exam Head: atraumatic, normal appearance Nose: normal inspection Mouth/Throat: normal mouth inspection Neck: normal inspection, supple, full range of motion Cardiovascular/Respiratory: normal breath sounds Neurologic/Psych: no motor/sensory deficits, awake, alert, oriented x 3 Progress Differential Diagnosis: corneal abrasion, conjunctivitis Plan of Care: Tetracaine administered to right eye. His pain relief was complete. Patient noted feeling "gravel" on his right thigh. This is most consistent with conjunctivitis or corneal abrasion. There is no foreign body visualized. I prescribed Polytrim and referred him to ophthalmology to be seen on Sunday. I counseled him to return if his symptoms worsen. Departure Departure Disposition: HOME OR SELF CARE Condition: Stable Clinical Impression Primary Impression: Corneal abrasion Referrals: SHADIA LUNA (PCP/Family) Departure Forms: Customer Survey General Discharge Information Prescriptions: Current Visit Scripts Polytrim (Polytrim Eye Drops) 2 GTT OPH Q6 #20 ML
[2016-12-02] MEDS ORDERED: POLYTRIM EYE DR10 ML OPH (02:59)
== END 2016-12-02 03:11 ==
LOC: ERH 02:32
DX: S05.01XA Injury of conjunctiva and corneal abrasion without foreign body, right eye, initial encounter (principal); X58.XXXA Exposure to other specified factors, initial encounter; Y92.9 Unspecified place or not applicable; Y93.9 Activity, unspecified

== ENCOUNTER → 2017-07-19 | Day surgery (SDC) | payer OTHER ==
[~2017-07-19] VITALS: Ht 177.8 cm; Wt 118.8 kg
[~2017-07-19] MED LIST changes: +ANASTROZOLE1 M1 PO; +ASPIRIN EC81 M1 PO; +COREG3.125 MG PO; +CRESTOR20 M2 PO; +HYDRALAZINE HCL10 M1 PO; +INDOMETHACIN50 M1 PO; +LEVEMIR FL100 UNIT/1 SC; +MOBIC15 M1 PO; +MOVANTIK25 M1 PO; +POLYTRIM EYE DR10 ML OPH
--- NOTE | 2017-07-19 10:35 | Operative Report ---
Operative/Inv Procedure Report Surgery Date: 07/19/17 Name of Procedure: Right shoulder arthroscopy, subacromial decompression, extensive debridement, subpectoral biceps tenodesis, arthroscopic rotator cuff repair Pre-Operative Diagnosis: Right shoulder rotator cuff tear Post-Operative Diagnosis: Shoulder rotator cuff tear Estimated Blood Loss: scant Surgeon/Drop Count Associate: Mehnaz LAWSON,NOEMY Acosta Anesthesia: general endotracheal tube, block Complications: None Condition: Stable to PACU Operative Indication: This is a 62-year-old male with right shoulder pain. MRI showed a rotator cuff tear. Risks and benefits of the procedure were discussed with the patient at length. Risks include but are not limited to nerve damage, muscle damage, infection, blood loss, blood clots, pulmonary embolus, and even . The patient agreed to the above risks and elected to proceed with surgery. Operative/Procedure Note Note: The patient was taken to the operating room and placed in the lateral decubitus position with the operative side up after anesthesia was induced. The upper extremity was prepped and draped in the normal sterile fashion. A timeout was performed prior to incision. The site marking was visualized prior to incision. IV antibiotics were given prior to incision. After the upper extremity was prepped and draped a spinal needle was used to insufflate the shoulder joint with saline. An 11 blade was used to incise the skin for the posterior portal placement. The cannula was then placed. The camera was inserted. An anterior portal was established just proximal and lateral to the coracoid with a spinal needle and an 11 blade. The diagnostic arthroscopy was then performed which showed the above findings. A wand was used to tenotomize the biceps tendon. A combination of a shaver as well as a wand were used to debride the superior and posterior labrum. A shaver was then used to debride the subscapularis insertion. Next the subacromial space was entered through the posterior portal. A lateral portal was established with a spinal needle and an 11 blade. A blunt probe was inserted through the lateral portal. Next the shaver was inserted and a subacromial bursectomy was performed. Any bleeding vessels were identified and cauterized. The shaver was used to debride any bursal tissue on the undersurface of the acromion and surrounding the humeral head. The coracoacromial ligament was taken down with a wand. Care was taken to protect the rotator cuff tissue and only take bursal tissue. A wand was then used to further take down the soft tissue on the undersurface of the acromion. A bur was then inserted and the acromioplasty was then begun starting at the anterolateral edge of the acromion. This was extended down to the level of the acromioclavicular joint. This was then tapered further posteriorly. An 8 mm PassPort cannula was placed through the lateral portal site. A 6 mm PassPort cannula was placed through the anterior portal. An accessory portal was made just off of the lateral border the acromion with a spinal needle and an 11 blade. An 8 mm PassPort cannula was placed through this. The bur was used to prepare the rotator cuff footprint back to a healthy bed of bleeding bone for later rotator cuff repair. Any bursal adhesions superior to the rotator cuff were taken kyler with a shaver. The torn edges of the rotator cuff were debrided with a shaver. A tap was used and a 5.5 mm helicoil anchor was placed just lateral to the articular surface in the rotator cuff footprint. A second helical anchor was placed further posterior. An expressew needle was then used to shuttle the sutures from front to back. The most posterior suture was shuttled with a #1 PDS suture through a spinal needle order to gain adequate purchase of the infraspinatus tendon. The medial row was tied down with a locking knot and several half hitches. The sutures were then crisscrossed over the top and fixed with 2 lateral row anchors. An anchor was placed posterior to the bicipital groove. A second anchor was placed further posterior. This afforded excellent compression of the rotator cuff. The excess suture was then cut. A 1/8 inch Hemovac drain was placed through the posterior portal. An incision was then made in the axillary fold. Blunt dissection was performed and the pectoralis major tendon was identified. A Hohmann retractor was inserted deep to this to expose the bicipital groove. The biceps tendon was then delivered from the wound and whipstitched starting at the musculotendinous junction. It extended proximally. The excess tendon was cut. The bicipital groove was then cleared off of any soft tissue. A guidewire was then drilled from an anterior to posterior direction in the groove. A 7 mm reamer was then used over the wire to drill the anterior cortex. A 7 x 10 mm Arthrex peek tenodesis screw was then inserted after the biceps tendon was delivered into the drill hole. The screw was then tightened down flush with the anterior humeral cortex. The sutures were then tied over the top. The excess suture was cut. The wound was copiously irrigated. The skin was closed with 2-0 vicryl suture in a simple interrupted fashion and a running subcuticular 4-0 Monocryl stitch. Dermabond was applied. All instruments were removed and the shoulder was copiously irrigated. The portal sites were closed with 3-0 nylon suture in a simple interrupted fashion. A dry sterile dressing was placed. A sling was applied. The patient was transferred to PACU in stable condition. Findings: Complete tear of the supraspinatus with retraction to the superior portion of the humeral head. Infraspinatus with partial tearing. Subscapularis partial tearing of the upper rolled border. No loose bodies noted. Humeral head grade 1 chondral softening. Grade 2 chondral changes of the superior glenoid. Degenerative tearing of the posterior superior labrum. Anterior labrum intact. Extensive biceps tearing involving 50% of the tendon. Large subacromial hook. Extensive subacromial bursitis.
== END ==
LOC: STS 06-07 07:00
DX: M75.121 Complete rotator cuff tear or rupture of right shoulder, not specified as traumatic (principal); M75.51 Bursitis of right shoulder; M75.82 Other shoulder lesions, left shoulder; M25.511 Pain in right shoulder; M25.50 Pain in unspecified joint; E11.9 Type 2 diabetes mellitus without complications; Z79.4 Long term (current) use of insulin; I10 Essential (primary) hypertension
CPT/HCPCS: J0131; J0171; J0690; J2250; J2795; J3490